=== PATIENT | male | born 1975 | race Two or more races ===

== ENCOUNTER 2023-01-07 11:58 | Emergency (ER) | payer OTHER ==
[2023-01-07 12:27] VITALS: RESP 18; TEMP 98; BMI 25.7
[2023-01-07] MEDS ORDERED: ACETAMINOPHEN 1000 MG/100 ML BAG IVPB ONE (13:54)
[2023-01-07] MEDS ORDERED: METOCLOPRAMIDE HCL INJECTION 10 MG/2 ML VIAL IVPB ONE (13:54)
[2023-01-07] MEDS ORDERED: SODIUM CHLORIDE 0.9% 500 ML INFUS.BAG IV ONE (13:54)
[2023-01-07] MEDS ORDERED: ACETAMINOPHEN INJECTION 100 ML IVPB ONE (14:17)
[2023-01-07] MEDS ORDERED: METOCLOPRAMIDE HCL INJECTION 10 MG/2 ML VIAL ONE (14:17)
[2023-01-07 14:34] LABS: BASO % 0.8 % (0-2.0); EOS % 2.1 % (0-4.5); HEMATOCRIT 42.9 % (35.4-49); HEMOGLOBIN 15.1 GM/dL (11.7-16.9); LYMPH % 32.7 % (8-40); MCH 30.4 pg (25.7-33.7); MCHC 35.2 g/dl (32.0-35.9); MEAN CELL VOLUME 86.2 fl (80-96); MEAN PLT VOLUME 7.2 fl (7.5-11.1); MONO % 7.9 % (3.8-10.2); NEUT % 56.5 % (42.8-82.8); PLATELET COUNT 328 10^3/uL (134-434); RBC 4.97 M/mm3 (4.00-5.60); RDW 13.2 % (11.9-15.9); WHITE BLOOD COUNT 6.3 K/mm3 (4.0-10.0)
[2023-01-07 15:40] LABS: ALBUMIN 4.1 g/dl (3.4-5.0); BLOOD UREA NITROGEN 13.2 mg/dL (7-18); CALCIUM 9.6 mg/dL (8.5-10.1)
[2023-01-07 15:45] LABS: BILIRUBIN,TOTAL 1.1 mg/dL (0.2-1); TOT PROT 8.3 g/dl (6.4-8.2)
[2023-01-07] MEDS ORDERED: KETOROLAC TROMETHAMINE 15 MG/ML VIAL IVPUSH ONE (16:05)
[2023-01-07] MEDS ORDERED: KETOROLAC TROMETHAMINE 15 MG/ML VIAL ONE (16:08)
[2023-01-07 16:14] VITALS: BP 126/70; PULSE 83
== END 2023-01-07 16:14 | disposition home or self-care (01) ==
LOC: JER 11:58
PROC: 3E033NZ Introduction of Analgesics, Hypnotics, Sedatives into Peripheral Vein, Percutaneous Approach (ICD-10-PCS; principal; 2023-01-07)
PROC: 3E033GC Introduction of Other Therapeutic Substance into Peripheral Vein, Percutaneous Approach (ICD-10-PCS; 2023-01-07)
PROC: 3E033GC Introduction of Other Therapeutic Substance into Peripheral Vein, Percutaneous Approach (ICD-10-PCS; 2023-01-07)
DX: R51.9 Headache, unspecified (principal); R42 Dizziness and giddiness; R74.01 Elevation of levels of liver transaminase levels; Z20.822 Contact with and (suspected) exposure to COVID-19
CPT/HCPCS: 0241U-QW; 36415; 70450-TC; 80053; 85025; 99284-25

== ENCOUNTER 2023-11-21 06:56 | Emergency (ER) | payer OTHER ==
[2023-11-21] MEDS ORDERED: ONDANSETRON 4 MG/2 ML VIAL ONE (07:38)
[2023-11-21] MEDS ORDERED: ACETAMINOPHEN INJECTION 100 ML IVPB ONE (07:38)
[2023-11-21] MEDS ORDERED: KETOROLAC TROMETHAMINE 30 MG/1 ML VIAL ONE (07:39)
[2023-11-21 07:54] VITALS: BMI 24.9
[2023-11-21] MEDS: KETOROLAC TROMETHAMINE 30 MG/1 ML VIAL IVPUSH ONE (07:56)
[2023-11-21] MEDS: ONDANSETRON 4 MG/2 ML VIAL IVPUSH ONE (07:56)
[2023-11-21] MEDS: SODIUM CHLORIDE 0.9% 500 ML INFUS.BAG IV ONE (08:09)
[2023-11-21 08:14] LABS: EPI CELLS 2 /uL (0-25.1); HYALINE CASTS 2 /uL (0-3.1); URINE APPEARANCE CLEAR; URINE BACTERIA 1 /uL (0-1359); URINE BILIRUBIN NEGATIVE (NEGATIVE); URINE COLOR YELLOW; URINE GLUCOSE (UA) NEGATIVE (NEGATIVE); URINE KETONE NEGATIVE (NEGATIVE); URINE LEUK ESTERASE NEGATIVE (NEGATIVE); URINE NITRITE NEGATIVE (NEGATIVE); URINE PROTEIN NEGATIVE (NEGATIVE); URINE RBC 16 /uL (0-23.9); URINE UROBILINOGEN 0.2 mg/dL (0.2-1.0); URINE WBC 2 /uL (0-25.8)
[2023-11-21 08:16] LABS: BASO % 0.8 % (0-2.0); EOS % 3.4 % (0-4.5); HEMATOCRIT 42.4 % (35.4-49); HEMOGLOBIN 14.5 GM/dL (11.7-16.9); LYMPH % 36.6 % (8-40); MCH 30.7 pg (25.7-33.7); MCHC 34.2 g/dl (32.0-35.9); MEAN CELL VOLUME 89.9 fl (80-96); MEAN PLT VOLUME 7.1 fl (7.5-11.1); MONO % 8.1 % (3.8-10.2); NEUT % 51.1 % (42.8-82.8); PLATELET COUNT 316 10^3/uL (134-434); RBC 4.71 M/mm3 (4.00-5.60); RDW 12.6 % (11.9-15.9); WHITE BLOOD COUNT 6.6 K/mm3 (4.0-10.0)
[2023-11-21 08:41] LABS: POTASSIUM 4.1 mmol/L (3.5-5.1)
[2023-11-21 08:46] LABS: ALBUMIN 3.9 g/dl (3.4-5.0); BLOOD UREA NITROGEN 19.4 mg/dL (7-18); CALCIUM 8.9 mg/dL (8.5-10.1)
[2023-11-21 08:49] LABS: CREATININE 1.3 mg/dL (0.55-1.3)
[2023-11-21 08:51] LABS: BILIRUBIN,TOTAL 0.6 mg/dL (0.2-1); TOT PROT 8.1 g/dl (6.4-8.2)
[2023-11-21 09:52] VITALS: BP 127/77; PULSE 76; RESP 18
[2023-11-21 09:53] VITALS: TEMP 98.6
== END 2023-11-21 10:32 | disposition home or self-care (01) ==
LOC: JER 06:56
PROC: 3E0333Z Introduction of Anti-inflammatory into Peripheral Vein, Percutaneous Approach (ICD-10-PCS; principal; 2023-11-21)
PROC: 3E033GC Introduction of Other Therapeutic Substance into Peripheral Vein, Percutaneous Approach (ICD-10-PCS; 2023-11-21)
DX: R10.9 Unspecified abdominal pain (principal); R11.0 Nausea; N20.0 Calculus of kidney
CPT/HCPCS: 36415; 74176-TC; 80053; 81003; 85025; 87086

== ENCOUNTER 2024-01-13 09:01 | Emergency (ER) | payer OTHER ==
[2024-01-13 09:06] VITALS: BP 124/90; PULSE 94; RESP 20; TEMP 97.8; BMI 24.1
[2024-01-13] MEDS: IBUPROFEN 600 MG TABLET (FP) PO ONE (10:38)
[2024-01-13] MEDS: ONDANSETRON *ODT* 4 MG TABLET SL ONE (10:38)
[2024-01-13] MEDS ORDERED: IBUPROFEN 600 MG TABLET (FP) PO ONE (10:40)
[2024-01-13] MEDS ORDERED: ONDANSETRON 4 MG TABLET PO ONE (10:43)
[2024-01-13] MEDS ORDERED: ONDANSETRON *ODT* 4 MG TABLET ONE (10:43)
[2024-01-13 11:03] LABS: BASO % 0.9 % (0-2.0); HEMATOCRIT 47.2 % (35.4-49); HEMOGLOBIN 15.7 GM/dL (11.7-16.9); LYMPH % 29.2 % (8-40); MCH 29.5 pg (25.7-33.7); MCHC 33.3 g/dl (32.0-35.9); MEAN CELL VOLUME 88.7 fl (80-96); MEAN PLT VOLUME 6.8 fl (7.5-11.1); MONO % 7.6 % (3.8-10.2); NEUT % 59.3 % (42.8-82.8); PLATELET COUNT 314 10^3/uL (134-434); RBC 5.33 M/mm3 (4.00-5.60); RDW 12.9 % (11.9-15.9)
[2024-01-13 11:24] LABS: POTASSIUM 4.6 mmol/L (3.5-5.1)
[2024-01-13 11:25] LABS: CALCIUM 9.7 mg/dL (8.5-10.1)
[2024-01-13 11:26] LABS: ALBUMIN 4.4 g/dl (3.4-5.0); BLOOD UREA NITROGEN 11.2 mg/dL (7-18)
[2024-01-13 11:30] LABS: BILIRUBIN,TOTAL 0.5 mg/dL (0.2-1); TOT PROT 8.5 g/dl (6.4-8.2)
[2024-01-13 12:23] LABS: THROAT:GRP A STREP NOT DETECTED (NOTDETECTED)
== END 2024-01-13 12:31 | disposition home or self-care (01) ==
LOC: JERFT 09:01
DX: R11.0 Nausea (principal); B34.9 Viral infection, unspecified; R05.9 Cough, unspecified; J02.9 Acute pharyngitis, unspecified; R51.9 Headache, unspecified; Z20.822 Contact with and (suspected) exposure to COVID-19
CPT/HCPCS: 0241U-QW; 36415; 80053; 85025; 87651; 99283-25; Q0162

== ENCOUNTER 2024-01-23 11:55 | Emergency (ER) | payer OTHER ==
[2024-01-23 12:18] VITALS: BP 124/83; PULSE 86; RESP 18; TEMP 97.6; BMI 25.0
[2024-01-23 14:08] LABS: BASO % 0.6 % (0-2.0); EOS % 1.7 % (0-4.5); HEMATOCRIT 44.6 % (35.4-49); HEMOGLOBIN 15.3 GM/dL (11.7-16.9); LYMPH % 19.3 % (8-40); MCH 30.1 pg (25.7-33.7); MCHC 34.4 g/dl (32.0-35.9); MEAN CELL VOLUME 87.6 fl (80-96); MEAN PLT VOLUME 6.9 fl (7.5-11.1); MONO % 5.8 % (3.8-10.2); NEUT % 72.6 % (42.8-82.8); PLATELET COUNT 315 10^3/uL (134-434); RDW 13.1 % (11.9-15.9); WHITE BLOOD COUNT 8.1 K/mm3 (4.0-10.0)
[2024-01-23 14:23] LABS: POTASSIUM 3.9 mmol/L (3.5-5.1)
[2024-01-23 14:26] LABS: ALBUMIN 3.8 g/dl (3.4-5.0); BLOOD UREA NITROGEN 13.1 mg/dL (7-18); CALCIUM 9.6 mg/dL (8.5-10.1)
[2024-01-23 14:29] LABS: CREATININE 0.9 mg/dL (0.55-1.3)
[2024-01-23 14:31] LABS: BILIRUBIN,TOTAL 0.4 mg/dL (0.2-1); TOT PROT 7.9 g/dl (6.4-8.2)
== END 2024-01-23 18:28 | disposition home or self-care (01) ==
LOC: JER 11:55
DX: R55 Syncope and collapse (principal); R20.0 Anesthesia of skin; R51.9 Headache, unspecified
CPT/HCPCS: 36415; 80053; 84484; 85025; 93005; 93010; 99284-25